=== PATIENT | male | born 1945 | race Caucasian/White ===

== ENCOUNTER 2018-10-22 08:00 | Day surgery (SDC) | payer MEDICARE ==
[2018-10-17 15:00] VITALS: BMI 38.7
[~2018-10-22 08:00] MED LIST: ALPRAZolam 0.25 MG TAB PO PRN; ALPRAZolam 0.5 MG TAB PO PRN; ASPIRIN 325 MG TAB PO STA; ATORVASTATIN 80 MG TAB PO STA; NITROGLYCERIN SL TABS 0.4 MG TAB SUBLINGUAL PRN; SODIUM CHLORIDE 0.9% 1,000 ML in EMPTY BAG 1 BAG IV ONE
[2018-10-22] MEDS ORDERED: SODIUM CHLORIDE 0.9% 1,000 ML IV ONE (08:20)
[2018-10-22 08:36] LABS: Glucose,Whole Blood 172 mg/dL (75-99)
[2018-10-22 08:53] VITALS: TEMP 97.7
[2018-10-22] MEDS ORDERED: VERAPAMIL 2.5 MG/ML 2 ML AMP ONE (09:11)
[2018-10-22] MEDS ORDERED: LIDOCAINE 1% INJ 10MG/ML (20 ML MDV) ONE (09:11)
[2018-10-22] MEDS ORDERED: HEPARIN SODIUM 1,000 UN/ML (10ML VL) ONE (09:11)
[2018-10-22] MEDS ORDERED: MIDAZOLAM (PF) 2 MG/2 ML VIAL IV ONE (09:40)
[2018-10-22] MEDS ORDERED: LIDOCAINE 1% INJ 10MG/ML (20 ML MDV) SQ ONE (09:42)
[2018-10-22] MEDS: VERAPAMIL SYRINGE (5 MG/10 ML) INTRAARTER ONE ×2 (09:43→09:56)
[2018-10-22] MEDS ORDERED: HEPARIN SODIUM 1,000 UN/ML (10ML VL) IV ONE (09:45)
[2018-10-22] MEDS ORDERED: IOPAMIDOL-370 125ML BTL INJ ONE (09:52)
[2018-10-22] MEDS ORDERED: RX INFO: IV CONTRAST WAS GIVEN 1 EACH MISC MISCELLANE PRN (10:23)
[2018-10-22 10:29] LABS: Glucose,Whole Blood 141 mg/dL (75-99)
[2018-10-22] MEDS ORDERED: SODIUM CHLORIDE 0.9% 1,000 ML IV SCH (10:30)
[2018-10-22 10:36] VITALS: RESP 16
--- NOTE | 2018-10-22 11:21 | CC ---
CARDIAC CATHETERIZATION REPORT DATE OF SERVICE: 10/22/2018 PERFORMING PHYSICIAN: Johnny Salinas MD, Software Maintenance Engineer. PROCEDURE PERFORMED: 1. Selective right and left coronary angiogram. 2. Left heart catheterization. INDICATION: This is a pleasant 80-year-old gentleman who continues to have exertional dyspnea and he underwent myocardial perfusion imaging stress test that showed reversible defect. Because of that, a heart catheterization was advised. APPROACH: Right radial artery. COMPLICATION: None. LEVEL OF SEDATION: Moderate with sedation length of 15 minutes. PROCEDURE DESCRIPTION: After obtaining an informed consent, the patient was brought to the cardiac quality control lab technician. The right radial artery was cannulated using micropuncture technique, the micropuncture wire passed easily. Then I placed a 6-Estonian sheath in the right radial artery. After that, I did give the patient 2 mg of verapamil IA and 10,000 units of heparin IV. I did selective right and left coronary angiogram using JR4 and JL3.5 catheters. Left heart catheterization was performed using 6-Estonian pigtail catheter. The procedure was completed without any complication. SELECTIVE CORONARY ANGIOGRAM: The right coronary artery is a large caliber vessel and it is a dominant vessel. The right coronary artery is chronically occluded in the ostium. It fills by collateral from the left coronary system. The left main is a large caliber vessel. It is angiographically normal. it bifurcates into the circumflex and left anterior descending artery. The left circumflex is a large caliber vessel and is a codominant vessel. The proximal circumflex appeared to have mild disease only. The mid circumflex appeared to be normal and gives rise into a large first OM branch which has mild disease only and the circumflex distally appeared to be normal. The LAD, the proximal LAD appeared to be normal. The mid LAD appeared to have a lesion in the range of full 40% to 50% The LAD distally appeared to be normal. The LAD gives rise into a diagonal branch which seems to be normal. HEMODYNAMICS: The left ventricular end-diastolic pressure was about 10 mmHg without significant gradient across the aortic valve. CONCLUSION: 1. 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 The right coronary artery fills by collaterals from the left coronary system. 2. 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 3. Normal left ventricular end-diastolic pressure. POSTPROCEDURE MANAGEMENT: 1. I advise maximized medical treatment at this point of time. 2. If the patient continues to be symptomatic, he might benefit from PCI of the right coronary artery. MMLINDA / AUGUSTO: [id number] /
[2018-10-22 14:42] VITALS: BP 159/72; PULSE 72
== END 2018-10-22 14:25 | disposition home or self-care (01) ==
LOC: CATHCVL 08:00 → EDBD 12:00 → CATHCVL 14:25
PROVIDERS: ATTEND Internal Medicine Interventional Cardiology
DX: I25.10 Atherosclerotic heart disease of native coronary artery without angina pectoris (principal); I25.82 Chronic total occlusion of coronary artery; I10 Essential (primary) hypertension; Z87.891 Personal history of nicotine dependence; E78.5 Hyperlipidemia, unspecified; E11.9 Type 2 diabetes mellitus without complications; I27.20 Pulmonary hypertension, unspecified; E78.00 Pure hypercholesterolemia, unspecified; Z86.73 Personal history of transient ischemic attack (TIA), and cerebral infarction without residual deficits; Z82.49 Family history of ischemic heart disease and other diseases of the circulatory system; Z79.82 Long term (current) use of aspirin; Z79.4 Long term (current) use of insulin; Z79.899 Other long term (current) drug therapy; Z88.0 Allergy status to penicillin
CPT/HCPCS: 93458

== ENCOUNTER → 2019-03-17 | Outpatient (CLI) | payer MEDICARE ==
--- NOTE | 2019-03-17 16:19 | PN ---
PROGRESS NOTE SLEEP CENTER PROGRESS NOTE: This patient is 73, with mild obstructive sleep apnea. The patient is coming in for a compliancy check. The patient is doing extremely well on a CPAP pressure of 14 cm of water. He is currently using a Simplus full-face mask. I noted that the patient is having an excessive amount of leaks, as the patient has facial hair and a díaz. Based on the compliance data, the patient's leak factor is 115 L/minute. Nevertheless, despite his ongoing high leak, the patient's treatment is successful and the AHI is down to 2. The patient has been averaging around 7.4 hours of CPAP use per night and his CPAP use for more than 4 hours is 100%. He is benefitting from the treatment. He has no specific complaints. He has lost about 3 pounds since his last visit. He is much more alert and refreshed during the day. He is seeking an alternative mask that gives him a better seal. REVIEW OF SYSTEMS: Fourteen-point review of systems was done. Positive findings were all mentioned above in the history of present illness. PHYSICAL EXAMINATION: VITAL SIGNS: BP is 120/63 pulse 56, respirations 16. Weight is 271, temperature 97.7, saturation 96% on room air. GENERAL APPEARANCE: Calm, comfortable. HEAD: Atraumatic, normocephalic. NECK: Supple. No JVD. No goiter or neck masses. Mallampati class IV. LUNGS: Clear to auscultation. HEART: Heart sounds are regular rate and rhythm. Normal S1, S2. No S3, S4. No murmurs. ABDOMEN: Soft, nontender. No organomegaly. EXTREMITIES: No edema. No cyanosis or clubbing. NEUROLOGIC: Alert and oriented x3. No focal neurological deficit. IMPRESSION: 1. Obstructive sleep apnea, mild, with an apnea/hypopnea index of 15. The patient continues to receive successful CPAP therapy at a pressure of 14 cm. The treatment has been successful. The patient's Dryden score is down to 3. 2. Morbid obesity. 3. Hypersomnia, improved. 4. Hyperlipidemia. 5. Diabetes mellitus. 6. Peripheral neuropathy. PLAN: 1. I offered this patient an AirFit F20 medium-sized full-face mask. 2. A prescription was given. The mask was tried in the office and the patient had an excellent mask seal. This will be something he would like to use in the future, and a prescription was given. He will see me back in a year's time, earlier if needed, should he have any problems with his CPAP treatment. Otherwise his treatment is successful for now. MMANTWONL / IJN: [id number] /
== END | disposition home or self-care (01) ==
LOC: SLEEP 13:10
PROVIDERS: ATTEND Internal Medicine Critical Care Medicine
DX: G47.33 Obstructive sleep apnea (adult) (pediatric) (principal); E66.01 Morbid (severe) obesity due to excess calories; E78.5 Hyperlipidemia, unspecified; E11.42 Type 2 diabetes mellitus with diabetic polyneuropathy; Z99.89 Dependence on other enabling machines and devices